=== PATIENT | female | born 1950 | race Caucasian/White ===

== ENCOUNTER 2017-07-20 05:47 | Inpatient (IN) | payer OTHER ==
--- NOTE | 2017-07-12 15:03 | HP ---
HISTORY AND PHYSICAL: DATE OF SURGERY: 07/20/17 DATE OF OFFICE VISIT: 07/12/17 SURGEON: Imani Bray MD * (DICTATED BY JS CAPUTO) PROCEDURE: Right total knee arthroplasty. CHIEF COMPLAINT: Right knee pain. HISTORY OF PRESENT ILLNESS: Ms. Pearson is a 67-year-old female with complaints of right knee pain secondary to advanced osteoarthritis. She has failed conservative management and elected to proceed with a right total knee arthroplasty, which is scheduled for 07/20/[address] Bray. PAST MEDICAL HISTORY: Hypothyroidism, hepatitis, and diverticulitis. PAST SURGICAL HISTORY: Breast reduction, tubal ligation, and appendectomy. CURRENT MEDICATIONS: 1. Metronidazole. 2. Levothyroxine 25 mcg. 3. Vitamin B12. 4. Fish oil. 5. Multivitamin. 6. Vitamin E. 7. Garlic oil. 8. [place] oil. 9. Melatonin. 10. Biotene. 11. . ALLERGIES: No known drug allergies. FAMILY HISTORY: Diabetes and congestive heart failure. SOCIAL HISTORY: A 67-year-old female with a partner. Does not smoke or use drugs. Uses occasional alcohol. REVIEW OF SYSTEMS: A complete 14-point review of systems was reviewed with the patient, was positive for hypothyroidism and hepatitis. She denies history of DVT, PE, or anesthesia problems. PHYSICAL EXAMINATION GENERAL: Well developed, well nourished, in no acute distress. VITAL SIGNS: She stands 61 inches tall, weighs 156 pounds. Her blood pressure is 120/83, her heart rate is 68. HEENT: Normocephalic, atraumatic. NECK: Supple. No palpable lymph nodes. PULMONARY: Lungs are clear to auscultation bilaterally. CARDIO: Regular rate and rhythm. ABDOMEN: Soft, nontender, nondistended. MUSCULOSKELETAL: Right lower extremity, the skin is intact. There are no open wounds or abrasions. She has tenderness over the medial and lateral joint line. There is moderate effusion. No varus or valgus instability, 5 to 130 degrees of flexion, 2+ dorsalis pedis pulses are intact sensation. NEUROLOGICAL: Cranial nerves II through XII are intact. She is alert and oriented x3. ASSESSMENT AND PLAN: Ms. Pearosn is a 67-year-old female with complaints of right knee pain secondary to advanced osteoarthritis. She has failed conservative management and has elected to proceed with a right total knee arthroplasty, which is scheduled for 07/20/[address] Bray discussed the risks and the benefits of the surgery at today's visit and all of her questions were answered. Coumadin, Colace, and Percocet were sent to her pharmacy for postoperative pain control and DVT prophylaxis. She will see Dr. Bray back in 2 weeks after the surgery. JS CAPUTO [id number]/[facility] #: [id number] [place]
[~2017-07-20 05:47] MED LIST: Buffered Lidocaine 0.9% SYRIN* 5 ML/SYR SYRINGE INTRADERM ONE; Buffered Lidocaine 0.9% SYRIN* 5 ML/SYR SYRINGE ONE; Dexamethasone IV* 4 MG/ML 1 ML (4 MG) ONE; Famotidine IV* 10 MG/ML 2 ML (20 mg) ONE; ceFAZolin 2 GM PREMIX (*) 2 GM/50 ML BAG IVPB ONE
[2017-07-20] MEDS ORDERED: Famotidine IV* 10 MG/ML 2 ML (20 mg) IV ONE (06:00)
[2017-07-20] MEDS ORDERED: Dexamethasone IV* 4 MG/ML 1 ML (4 MG) IV SLOW PU ONE (06:00)
[2017-07-20] MEDS ORDERED: Morphine PF AMP (0.5MG/ML)* 5 MG/10 ML AMP ONE (07:17)
[2017-07-20] MEDS ORDERED: KETAMINE HCL* 50 MG/ML 10 ML VIAL ONE (07:17)
[2017-07-20] MEDS ORDERED: Midazolam* 1 MG/ML 5 ML VIAL (5 MG) ONE (07:17)
[2017-07-20] MEDS ORDERED: Phenylephrine INJ* 10 MG/ML 1 ML VIAL (10 MG) ONE (07:18)
[2017-07-20] MEDS ORDERED: Bupivacaine 0.5% SDV PF* 30 ML VIAL ONE (07:20)
[2017-07-20] MEDS ORDERED: Ondansetron INJ* 2 MG/ML VIAL ONE (07:20)
[2017-07-20] MEDS ORDERED: Propofol* 10 MG/ML 20 ML BTL IV PUSH ONE (07:20)
[2017-07-20] MEDS ORDERED: DiMENhydriNATE IV* 50 MG/ML VIAL IV PUSH PRN (08:08)
[2017-07-20] MEDS ORDERED: Nalbuphine* 20 MG/ML 1 ML VIAL IV PRN ×2 (08:08)
[2017-07-20] MEDS ORDERED: Naloxone* 0.4 MG/ML 1 ML VIAL IV PRN (08:08)
[2017-07-20] MEDS ORDERED: Ondansetron INJ* 2 MG/ML VIAL IV PRN (08:08)
[2017-07-20] MEDS ORDERED: oxyCODONE/Acetamin 5/325 MG* TAB PO PRN ×2 (08:08)
[2017-07-20] MEDS ORDERED: Acetaminophen TAB* 325 MG PO PRN (08:11)
[2017-07-20] MEDS ORDERED: Magnesium Hydroxide LIQ* 30 ML UDC PO PRN (08:11)
[2017-07-20] MEDS ORDERED: Scopolamine 1.5 mg* PATCH TRANSDERM SCH (09:00)
[2017-07-20] MEDS ORDERED: Ropivacaine* 300 MG in NS 0.9% 250 ML* 240 ML EPIDURAL SCH (09:00)
--- NOTE | 2017-07-20 12:07 | RAD ---
INDICATION: Total right knee replacement surgery. TECHNIQUE: 2 views of the right knee were obtained. FINDINGS: The patient is status post total right knee replacement surgery. The bones and prostheses are in normal alignment. There is no evidence for loosening. There is a surgical drain present anteriorly. There is air within the soft tissues consistent with the patient's recent surgery. IMPRESSION: STATUS POST TOTAL RIGHT KNEE REPLACEMENT SURGERY.
[2017-07-20] MEDS: Docusate CAP* 100 MG PO SCH ×2 (14:47→21:42)
[2017-07-20] MEDS: Vitamin THERAPEUTIC TAB PO SCH (14:48)
[2017-07-20] MEDS: ceFAZolin 1 GM VIAL(*) 1 GM in NS 0.9% 50 ML* 50 ML IVPB SCH (16:09)
[2017-07-20] MEDS ORDERED: Warfarin TAB(*) 6 MG PO ONE (17:00)
[2017-07-20] MEDS: Melatonin (NF) ** ENTER STRENGTH IN LABEL DIRECTIONS PO SCH (20:23)
[2017-07-21] MEDS: ceFAZolin 1 GM VIAL(*) 1 GM in NS 0.9% 50 ML* 50 ML IVPB SCH ×2 (00:01→08:01)
[2017-07-21] MEDS: Levothyroxine TAB* 25 MCG TAB PO SCH (05:35)
[2017-07-21] MEDS ORDERED: oxyCODONE/Acetamin 5/325 MG* TAB PO PRN (06:00)
[2017-07-21] MEDS ORDERED: diPHENhydraMINE PO* 25 MG PO PRN (06:00)
[2017-07-21] MEDS: oxyCODONE/Acetamin 5/325 MG* TAB PO PRN ×3 (06:41→21:29)
[2017-07-21 06:44] LABS: Hematocrit 32 % (35-47); Hemoglobin 11.3 g/dl (12.0-16.0)
[2017-07-21 06:56] LABS: BUN/Creatinine Ratio 25.5 (8-20); Calcium 9.3 mg/dL (8.6-10.3); EGFR African American 155.2 (>60); EGFR Non-African American 120.7 (>60); Potassium 3.8 mmol/L (3.5-5.0)
--- NOTE | 2017-07-21 07:35 | OP ---
OPERATIVE NOTE: DATE OF OPERATION: 07/20/17 DATE OF : 52 SURGEON: Imani Bray MD. PROJECT ASSOCIATE: JS Sheppard. Ms. Ahmadi did help throughout the procedure with preparation of the leg, wound retraction, manipulation of the knee, and wound closure. ANESTHESIOLOGIST: Dr. Mcclellan. ANESTHESIA: Spinal. PRE-OP DIAGNOSIS: Severe end-stage degenerative osteoarthritis of the right knee joint. POST-OP DIAGNOSIS: As above. OPERATIVE PROCEDURE: Right total knee arthroplasty. HARDWARE USED: Cemented [employer] total knee hardware. Two packages of Simplex bone cement. For the femur, a right size 4 narrow posterior stabilized Oxinium femoral component. For the tibia, size 3 right tibial baseplate. For the insert, a 11-mm posterior stabilized articular insert size 5-4. For the patella, 32-mm 7.56 posterior peg all-poly patella. TOURNIQUET TIME: 41 minutes. COMPLICATIONS: None. ESTIMATED BLOOD LOSS: 100 cc. SPECIMEN: Bone and cartilage from the right knee joint sent to Pathology. BRIEF HISTORY/INDICATION: Ms. Pearson is a 67-year-old female with years of increasingly severe right knee pain. She failed conservative treatment with anti- inflammatories, pain medication, intraarticular injections, and physical therapy. Due to continued pain and decreased quality of life, she elected to undergo right total knee arthroplasty. Informed consent was obtained from the patient. She understood the risk of the procedure included but were not limited to bleeding infection, damage to nearby structures, continued pain, need for further surgery, intraoperative fracture, nerve palsy, hardware failure or loosening, knee stiffness, loss of motion, stroke, heart attack, blood clot, and . She wished to proceed. INTRAOPERATIVE FINDINGS: Intraoperatively, the patient was noted to have tricompartmental full thickness loss of cartilage. DESCRIPTION OF PROCEDURE: Ms. Pearson was identified in the preanesthesia unit. Her right lower extremity was marked as the correct operative side. Informed consent was signed and placed in the chart. The patient was taken to the operating room and placed under spinal anesthesia. A Parra catheter was placed. Tourniquet was placed on the right thigh. Right lower extremity was prepped and draped in the usual sterile fashion. Preop time-out was made to correctly identify the patient's side and site. Appropriate perioperative antibiotics were given within 1 hour of incision. Tourniquet was inflated and total tourniquet time for this procedure was 41 minutes. A 12-cm midline incision was made with a 10 blade and carried down to the extensor mechanism. New 10 blade was used to make a standard medial parapatellar arthrotomy. The patella was subluxed laterally. Electrocautery was used to subperiosteally elevate soft tissue off the superomedial tibia. The knee was flexed up. The anterior horn of the lateral meniscus and ACL were sharply released. A drill was used to enter the distal femur. Intramedullary distal femoral cutting guide was pinned on the distal femur. A 9 mm of distal femoral bone was carefully removed. Next, the external rotation guide was pinned on the distal femur and the distal femur was sized to a size 4. Size 4 multi-cutting jig was pinned on the distal femur. Oscillating saw was used to make the appropriate 4 chamfer cuts. PCL was sharply released. The tibia was subluxed anteriorly. Extramedullary tibial cutting guide was pinned on the proximal tibia. Oscillating saw was used to make the proximal tibial cut perpendicular to the mechanical axis of the tibia. The bone was carefully removed. The knee was brought out into full extension. Spacer block had good fit. There was good medial and lateral ligamentous balancing. Flexion and extension gaps were well balanced. The knee was flexed up. Tibial tray and drop rigo once again confirmed a satisfactory tibial cut. Lamina black top spreader machine operator was placed both medially and laterally. Any remaining meniscus was carefully removed using electrocautery. Curved osteotome was used to remove posterior osteophytes. A size 4 right narrow femoral component trial was chosen and impacted on to the distal femur. This trial had good fit. The box of the posterior stabilized implant was prepared using a reamer and box cut osteotome. Trial size 3 tibial tray and trial 11-mm insert were placed, and the knee was taken through a range of motion. The knee had full extension to 130 degrees of flexion with satisfactory patellofemoral tracking. Patella was everted. A 7 mm of patellar bone and cartilage was carefully removed using an oscillating saw. The patella was sized to a size 32. The 3 peg holes were drilled through the size 32 guide. A 7.5 thickness 32 patellar trial was chosen and placed. The knee was taken through a range of motion. There was satisfactory patellofemoral tracking. All trials were carefully removed. The tibia was subluxed anteriorly and sized to a size 3. Proximal tibia was prepared using a size 3 keel punch. All bony cut surfaces were copiously irrigated with sterile saline and dried. Final implants were cemented into place starting with the tibia, followed by the femur and last the patella. An 11-mm insert trial was placed and the knee was brought out into full extension. Tourniquet was turned down at 41 minutes. The knee was copiously irrigated with sterile saline. Once the cement had fully cured, the insert trial was removed. Electrocautery was used to obtain meticulous hemostasis. Any excess cement was carefully removed from around the implants and capsule. Final insert chosen was a 11-mm posterior stabilized articular insert, size 3/ 4. This was locked into position on the tibial tray without difficulty. Stability of the insert was checked and rechecked and noted to be stable. The knee was once again copiously irrigated with sterile saline. Extensor mechanism was closed over a medium Hemovac drain using interrupted #1 Vicryls. The rest of the incision was closed in a layered fashion using 0 and 2-0 Vicryls. Skin was closed using running 3-0 nylon suture. Sterile Xeroform, 4x4s, and Webril were used to cover the incision. Solitario wrap and cold pack were placed over this. The patient's anesthesia was reversed without difficulty. She was taken to the PACU in stable condition. Intended weightbearing will be weightbearing as tolerated. Intended DVT prophylaxis will be Coumadin with Lovenox bridge. [id number]/[facility] #: [id number] BE[place]RICE
[2017-07-21] MEDS: Vitamin THERAPEUTIC TAB PO SCH (09:01)
[2017-07-21] MEDS: Docusate CAP* 100 MG PO SCH ×2 (09:01→19:39)
[2017-07-21] MEDS: Enoxaparin(*) 30 MG/0.3 ML SYR SUBCUT SCH (11:36)
--- NOTE | 2017-07-21 12:55 | PN ---
Progress Note - Progress Note Date of Service: 07/21/17 SOAP: Subjective: []Patient was seen out of bed in chair today. She reports feeling tired, but with resolution of nausea and vomiting as of this morning. Her pain is well controlled. Hemovac drain was pulled this morning by Dr. Bray with no complications. Objective: [] Laboratory Last Values Hgb 11.3 g/dl (12.0-16.0) L 07/21/17 06:14 Hct 32 % (35-47) L 07/21/17 06:14 INR (Anticoag Therapy) 0.94 (0.89-1.11) 07/21/17 06:13 Sodium 137 mmol/L (133-145) 07/21/17 06:13 Potassium 3.8 mmol/L (3.5-5.0) 07/21/17 06:13 Chloride 102 mmol/L (101-111) 07/21/17 06:13 Carbon Dioxide 30 mmol/L (22-32) 07/21/17 06:13 Anion Gap 5 mmol/L (2-11) 07/21/17 06:13 BUN 13 mg/dL (6-24) 07/21/17 06:13 Creatinine 0.51 mg/dL (0.51-0.95) 07/21/17 06:13 Est GFR ( Amer) 155.2 (>60) 07/21/17 06:13 Est GFR (Non-Af Amer) 120.7 (>60) 07/21/17 06:13 BUN/Creatinine Ratio 25.5 (8-20) H 07/21/17 06:13 Glucose 115 mg/dL (70-100) H 07/21/17 06:13 Calcium 9.3 mg/dL (8.6-10.3) 07/21/17 06:13 Vital Signs Temp 97.9 F 07/21/17 07:18 Pulse 54 07/21/17 07:18 Resp 14 07/21/17 08:41 BP 93/49 07/21/17 08:00 Pulse Ox 95 07/21/17 07:18 Intake & Output 07/20/17 07/21/17 07/21/17 18:59 06:59 18:59 Intake Total 2860 1395 1206 Output Total 1400 1250 Balance 7656 613 1043 Intake: IV Fluids 2500 980 986 LR 2500 980 986 IVPB 55 100 ABX - CEFAZOLIN 55 100 Oral 360 360 120 Output: Parra 1400 600 Emesis 650 Other: # Bowel Movements 0 General: appears fatigued but in no acute distress RLE: - Dressing over right knee is clean, dry and intact. No surrounding erythema - Sensation intact distally - Calf is nontender - DF and PF intact Assessment: [] Right total knee arthroscopy POD 1 Plan: [] WBAT RLE Coumadin to 8 mg for today. Discharge home in next 1-2 days
[2017-07-21] MEDS ORDERED: Warfarin TAB(*) 4 MG PO ONE (17:00)
[2017-07-21] MEDS: Morphine INJ* 2 MG/ML 1 ML SYRINGE (TWO MG - NEW SYRINGE VERSION) IV PRN (18:25)
[2017-07-21] MEDS: Melatonin (NF) ** ENTER STRENGTH IN LABEL DIRECTIONS PO SCH (19:39)
[2017-07-22] MEDS: oxyCODONE/Acetamin 5/325 MG* TAB PO PRN ×3 (04:28→11:55)
[2017-07-22 05:01] LABS: Hematocrit 30 % (35-47); Hemoglobin 10.7 g/dl (12.0-16.0); Mean Platelet Volume 8 um3 (7.4-10.4)
[2017-07-22] MEDS: Morphine INJ* 2 MG/ML 1 ML SYRINGE (TWO MG - NEW SYRINGE VERSION) IV PRN (05:05)
[2017-07-22] MEDS: Levothyroxine TAB* 25 MCG TAB PO SCH (05:06)
[2017-07-22] MEDS: Vitamin THERAPEUTIC TAB PO SCH (08:17)
[2017-07-22] MEDS: Docusate CAP* 100 MG PO SCH ×2 (08:17→21:02)
--- NOTE | 2017-07-22 09:25 | PN ---
Progress Note - Progress Note Date of Service: 07/22/17 SOAP: Subjective: Pt. is alert, pain is severe. Objective: RLE - dressing changed, inc c/d/i. distally nvi. Vital Signs: Temp Pulse Resp BP Pulse Ox 99.0 F 74 18 164/65 95 07/22/17 07:44 07/22/17 07:44 07/22/17 08:17 07/22/17 07:44 07/22/17 07:57 Laboratory Results - last 24 hr 07/22/17 07/22/17 04:39 04:39 Hgb 10.7 L Hct 30 L Plt Count 172 MPV 8 INR (Anticoag Therapy) 1.06 Assessment: 67 yo F pod 2 s/p RTKA Plan: wbat pt/ot lovenox today, 8 mg coumadin tonight plan d/c to home tomorrow AM
[2017-07-22] MEDS ORDERED: Cyclobenzaprine TAB* 10 MG PO PRN (10:28)
[2017-07-22] MEDS: Enoxaparin(*) 30 MG/0.3 ML SYR SUBCUT SCH (11:33)
[2017-07-22] MEDS ORDERED: Warfarin TAB(*) 4 MG PO ONE (17:00)
[2017-07-22] MEDS: Melatonin (NF) ** ENTER STRENGTH IN LABEL DIRECTIONS PO SCH (20:59)
--- NOTE | 2017-07-22 21:12 | CONS ---
CC: Dr. Lerma* [facility] CONSULTATION REPORT: DATE OF CONSULTATION: 07/22/17 ATTENDING PHYSICIAN: Imani Bray MD CONSULTING PHYSICIAN: Geri Urbano MD (dictation provided by Nancy Crowell NP) PRIMARY CARE PHYSICIAN: Dr. Lerma. REASON FOR CONSULTATION: Postop hypertension. HISTORY OF PRESENT ILLNESS: Ms. Pearson is a 67-year-old female with past medical history of hypothyroidism and hepatitis who presented to the hospital on 07/20/17 for an elective right total knee arthroplasty. Please see the dictated H and P from Dr. Imani Bray for complete details. In brief, the patient failed conservative management and elected to proceed with right total knee replacement. Ms. Pearson states that prior to coming into surgery, she was doing well. She notes that at times when she sees her primary care physician, her blood pressure will be slightly elevated; however, after she rests for 15 to 20 minutes, it is always normal. She also notes that she has noted her blood pressure to be a little higher than goal while at work and she attributes this to stress. Ms. Pearson had a period of hypotension postoperatively when her epidural catheter was removed. Her blood pressure was as low as 83/45; however, after an hour or so, her blood pressure improved. In the past 24 hours, her blood pressures remained elevated, running from 150s to 180s. She does note that this morning she was quite uncomfortable and having significant muscle spasms, but over the past couple hours she has been quite comfortable. Last documented blood pressure was 173/73. She denies any symptoms. She has no headache. No vision changes. She states that she is resting comfortably at this point. PAST MEDICAL HISTORY: 1. Hypothyroidism. 2. History of hepatitis. 3. Diverticulitis. PAST SURGICAL HISTORY: 1. Breast reduction in 2007. 2. Tubal ligation in 1980. 3. History of . 4. History of appendectomy. MEDICATIONS: Outpatient are: 1. Levothyroxine 37.5 mcg p.o. q.a.m. 2. Melatonin at bedtime as needed. 3. Tylenol as needed. 4. Zinc as directed. 5. Vitamin B12 as directed. 6. Magnesium as directed. 7. Glucosamine and chondroitin as directed. 8. Centrum MultiGummies for Women as directed. ALLERGIES: No known drug allergies. FAMILY HISTORY: The patient reports that hypertension runs in her grandparents , but that she does not have any other significant pertinent medical history. SOCIAL HISTORY: She has never been a smoker. She drinks 1 glass of wine per night. There is no report of drug use. She states that her daughters would be her healthcare proxies, Jeannine and Mari. REVIEW OF SYSTEMS: A 14-point review of systems was completed with Ms. Pearson and all those not mentioned above were negative. PHYSICAL EXAMINATION: Vital Signs: Temperature 98.0, heart rate 70, respiratory rate 16, O2 saturation 98% on room air, blood pressure 173/73. General: Ms. Pearson is sitting up in the bed. She is in no acute distress. Neuro: She is alert. She is oriented x3. She moves all extremities equally. There is no facial asymmetry or focal weakness. Extraocular movements are intact. Heart: S1, S2. No murmur, rub, or gallop and regular. Lungs: Clear to auscultation bilaterally with no accessory muscle use and good aeration. Abdomen: Soft and nontender. Bowel sounds are positive x4. Extremities: No cyanosis or edema. Skin: Intact. DIAGNOSTIC STUDIES/LAB DATA: Hemoglobin today 10.7 with hematocrit of 30. INR 1.06. Yesterday, sodium was 137, potassium 3.8, chloride 102, serum bicarbonate 30, BUN 13, creatinine 0.51, glucose 115. ASSESSMENT: Ms. Pearson is a 67-year-old female with a past medical history of hypothyroidism with some concern for possible hypertension outpatient, though it was felt that her blood pressure was well controlled in general. In the immediate postoperative period, she has evidence of hypertension and Hospital Medicine has been consulted. RECOMMENDATIONS: Our recommendations are as follows: 1. Hypertension. The patient's blood pressure on my recheck was 158/70. She states that she is resting comfortably. She confirms being in significant pain earlier and also feeling very stressed about being in the hospital. Our plans are to discontinue any IV fluids and continue to monitor closely. I do not think that she warrants starting blood pressure medications in the acute postoperative period based on the readings thus far. We could consider adding that tomorrow if it remains elevated despite better pain control. If her blood pressure is 150 or less, we will likely refer this back to her primary care physician to determine if medication as needed when she is not in an acute postop state. 2. Hypothyroidism. Continue levothyroxine. 3. Status post knee replacement: Management per Ortho. 4. DVT prophylaxis per Ortho. 5. Code status is full code. TIME SPENT: Approximately 45 minutes were spent in the consultation of this patient with more than half the time was spent with the patient at the bedside reviewing the events leading up to this hospitalization and during this hospitalization thus far, performing the physical examination, and reviewing my plan of care. NANCY CROWELL NP [id number]/[facility] #: [id number] [place]
[2017-07-23] MEDS: amLODIPine TAB* 5 MG PO SCH ×2 (00:29→08:06)
[2017-07-23] MEDS: Levothyroxine TAB* 25 MCG TAB PO SCH (05:52)
[2017-07-23 06:19] LABS: Hematocrit 34 % (35-47)
--- NOTE | 2017-07-23 07:29 | PN ---
Progress Note - Progress Note Date of Service: 07/23/17 SOAP: Subjective: Pt. is alert, reports pain controlled. Objective: RLE - dressing c/d/i. distally nvi. Vital Signs: Temp Pulse Resp BP Pulse Ox 98.3 F 79 16 183/81 96 07/23/17 03:24 07/23/17 03:24 07/23/17 03:24 07/23/17 03:24 07/23/17 03:24 Laboratory Results - last 24 hr 07/23/17 07/23/17 06:06 06:06 Hgb 12.0 Hct 34 L INR (Anticoag Therapy) 1.80 H Assessment: 67 yo F pod 3 s/p RTKA Plan: wbat pt/ot will d/c hypertension with hospitalist team ortho stable for d/c to home with vns today lovenox today, 4 mg coumadin tonight
[2017-07-23] MEDS: Vitamin THERAPEUTIC TAB PO SCH (08:06)
[2017-07-23] MEDS: Docusate CAP* 100 MG PO SCH (08:06)
[2017-07-23] MEDS ORDERED: Scopolomine PATCH Remove* 1 NOTE MISC PATCH OFF ONE (08:14)
[2017-07-23 08:45] VITALS: BP 158/83
[2017-07-23] MEDS: Enoxaparin(*) 30 MG/0.3 ML SYR SUBCUT SCH (11:11)
--- NOTE | 2017-07-23 12:44 | PN ---
Progress Note - Progress Note Date of Service: 07/23/17 Note: Patient continued to have intermittent hypertension during this admission. Her BP prior to discharge was 158/83. Patient was strongly encouraged at the time of my consultation to follow up with her PCP within one week to check BP and likely start an anti-hypertensive given her history of prior elevated BP with stress etc. Patient would likely benefit from this but preferred to follow with PCP rather than start a new medication during this hospitalization.
[2017-07-23] MEDS ORDERED: Warfarin TAB(*) 4 MG PO ONE (17:00)
--- NOTE | 2017-07-23 23:26 | DS ---
DISCHARGE SUMMARY: DATE OF ADMISSION: 07/20/17 DATE OF DISCHARGE: 07/23/17 PROVIDER: Dr. Imani Bray* (dictated by JS Wynn). ATTENDING DIAGNOSIS: Right total knee arthroplasty. CONSULTS: Hospitalist, PT, and OT. HISTORY OF PRESENT ILLNESS: Ms. Pearson is a 67-year-old female who had presented with ongoing complaints of right knee pain secondary to advanced osteoarthritis. She had failed conservative management and elected to proceed with a right total knee arthroplasty, which was performed on 07/20/[address] Imani Bray. HOSPITAL COURSE: The patient was admitted to [facility] on 07/20/17 and underwent a right total knee arthroplasty with no complications. The patient recovered briefly on the PACU and then was transferred to short stay surgical unit in stable condition. On postop day #1, the patient states H and H was 11.3 and 32. INR was 0.94 after 6 mg of Coumadin the night before. The dressing was clean, dry, and intact. Right lower extremity was neurovascularly intact. She can demonstrate wrist flexion and plantar flexion with good strength. She was able to get out of bed with physical therapy. Pain was controlled with Percocet 5/325 orally. She was found to be hypertensive with a blood pressure ranging over 160/70 for the rest of her stay. She was asymptomatic. No headaches. No chest pain. No coughing. An EKG was obtained and was found to be negative. Hospitalists were consulted for this reason. Her fluids were discontinued at that time and the patient was monitored for the rest of her stay. On postop day #2, the urinary catheter was discontinued. The patient was able to void without difficulty. Incision was found to be benign with minimal drainage. No erythema or warmth. the patient's H and H was 10.7 and 30, INR was 1.06 after 8 mg of Coumadin the night before. The pain was well controlled with Percocet 5/325. The patient was able to ambulate using a rolling walker and assistance. On postop day #3, the H and H was 12.0 and 34. INR was 1.80 after 8 mg of Coumadin the night before. The patient's pain was well controlled and found to be stable for discharge. Hospitalist decided that the patient should see her primary care practitioner for hypertension either Monday or Monday. DISCHARGE CONDITION: Good. DISCHARGE MEDICATION: New medications: 1. Percocet 5/325. 2. Warfarin 2 mg tabs. Home medications: 1. Metronidazole. 2. Levothyroxine 25 mcg. 3. Vitamin B12. 4. Fish oil. 5. Multivitamin. 6. Vitamin E. 7. Garlic oil. 8. [place] oil. 9. Melatonin. 10. Biotin. DISCHARGE INSTRUCTIONS: 1. Weightbearing as tolerated. 2. Wound care: Okay to shower. No bathing, swimming, submerging wound. Use a gentle soap, pat dry. Cover with gauze, Solitario wrap, or tape. Call orthopedic office for increased drainage, redness, increased pain or fever. Go to the ER with shortness of breath or chest pain. 4. Diet: Regular diet. Increase fluids and fiber to prevent constipation. Continue to use stool softeners, call the office if no bowel motions in 48 hours. 5. Continue physical therapy and occupational therapy and exercises as shown. Visiting home nurses to do wound checks. Visiting home nurses to draw blood work for INR on Monday and . 6. Coumadin dosing 4 mg tonight, recheck tomorrow. 7. Percocet 5/325 one tab every 4 to 6 hours as needed for pain. 8. Antibiotics required prior to any dental work. 9. Follow up with Dr. Imani Bray within 10 to 14 days. Call for an appointment. JS WYNN [id number]/[facility] #: [id number] [place]
== END 2017-07-23 11:55 | disposition home or self-care (01) | DRG 302 ==
LOC: AA 05:47 → SSU 12:31
PROVIDERS: ADMIT Orthopaedic Surgery Adult Reconstructive Orthopaedic Surgery; ATTEND Orthopaedic Surgery Adult Reconstructive Orthopaedic Surgery
PROC: 0SRC069 Replacement of Right Knee Joint with Oxidized Zirconium on Polyethylene Synthetic Substitute, Cemented, Open Approach (ICD-10-PCS; principal; 2017-07-20 07:30)
DX: M17.11 Unilateral primary osteoarthritis, right knee (principal); I97.3 Postprocedural hypertension; K75.9 Inflammatory liver disease, unspecified; M25.761 Osteophyte, right knee; E03.9 Hypothyroidism, unspecified; K57.90 Diverticulosis of intestine, part unspecified, without perforation or abscess without bleeding; Z79.899 Other long term (current) drug therapy; Z83.3 Family history of diabetes mellitus; Z82.49 Family history of ischemic heart disease and other diseases of the circulatory system
CPT/HCPCS: 36415; 80048; 85014; 85018; 85049; 85610; 93005; 94760; A9270-GY; C1776; J0690; J1100; J1650; J2250; J2270; J2300; J2405; J2704; J2795